=== PATIENT | male | born 1995 | race Caucasian/White ===

== ENCOUNTER 2020-05-09 22:15 | Emergency (ER) | payer OTHER ==
[~2020-05-09] VITALS: Ht 177.8 cm; Wt 95.2 kg
--- OUTSIDE RECORDS SUMMARY | ~2020-05-09 | XMS | Clinical Summary ---
Demographics + + + | Address | [address] | | | [place] [address] | + + + | Home Phone | | + + + | Preferred Language | Unknown | + + + | Marital Status | Single | + + + | Church Affiliation | Unknown | + + + | Race | White | + + + | Ethnic Group | Unknown | + + + Author + + + | Author | [facility] | | | and [place] | + + + | Organization | [facility] | | | and [place] | + + + | Address | Unknown | + + + | Phone | Unavailable | + + + Care Team Providers + +------+ + | Care Presser Automatic Name | Role | Phone | + +------+ + | Malachi Heredia MD | PCP | | + +------+ + Allergies Not on File Medications Not on file Active Problems Not on file Social History + +-------+ +--------+------+ | Tobacco Use | Types | Packs/Day | Years | Date | | | | | Used | | + +-------+ +--------+------+ | Never Assessed | | | | | + +-------+ +--------+------+ + + + | Sex Assigned at | Date Recorded | | | | + + + | Not on file | | + + + Last Filed Vital Signs Not on file Plan of Treatment + + +-------+ + | Health Maintenance | Due Date | Last | Comments | | | | Done | | + + +-------+ + | Vaccine: | | | | | Dtap/Tdap/Td (1 - | 7 | | | | Tdap) | | | | + + +-------+ + | Vaccine: Influenza | | | | | (#1) | 0 | | | + + +-------+ + Results Not on filefrom Last 3 Months"
--- OUTSIDE RECORDS SUMMARY | ~2020-05-09 | XMS | Encounter Summary ---
Demographics + + + | Address | [address] | | | [place] [address] | + + + | Home Phone | | + + + | Preferred Language | Unknown | + + + | Marital Status | Single | + + + | Mu-Ism Affiliation | Unknown | + + + | Race | White | + + + | Ethnic Group | Unknown | + + + Author + + + | Author | [facility] | | | and [place] | + + + | Organization | [facility] | | | and [place] | + + + | Address | Unknown | + + + | Phone | Unavailable | + + + Care Team Providers + +------+ + | Care Service Representative Name | Role | Phone | + +------+ + PCP | Unavailable | + +------+ + Encounter Details +--------+ + + + + | Date | Type | Department | Care Team | Description | +--------+ + + + + | 06/04/ | Emergency | [facility] | Carlos Mcdonald, | Pain in Limb | | 2007 | | [facility] | [address] | | | | | EM[facility]Y CENTER | [place] [address] | | | | | [address] | [phone] | | | | | [place], [place] | | | | | | [address] | | | | | | [phone] | | | +--------+ + + + + Social History + +-------+ +--------+------+ | Tobacco [...] on file | | + + + documented as of this encounter Plan of Treatment Not on filedocumented as of this encounter Visit Diagnoses + + | Diagnosis | + + | Pain in soft tissues of limb Pain in limb | + + documented in this encounter"
== END 2020-05-10 00:15 | disposition home or self-care (01) ==
LOC: ED 22:15
DX: S00.01XA Abrasion of scalp, initial encounter (principal); M54.2 Cervicalgia; F17.210 Nicotine dependence, cigarettes, uncomplicated; X58.XXXA Exposure to other specified factors, initial encounter
CPT/HCPCS: 70450; 72125; 99284-25

== ENCOUNTER 2023-05-13 20:17 | Emergency (ER) | payer BC ==
[~2023-05-13] VITALS: Ht 177.8 cm; Wt 89.8 kg
[2023-05-13 20:40] LABS: BILIRUBIN, URINE NEGATIVE (negative); BLOOD/HGB, URINE NEGATIVE (Negative); KETONE, URINE TRACE (Negative); LEUK ESTERASE, URINE NEGATIVE (negative); NITRITE, URINE NEGATIVE (negative)
[2023-05-13 20:44] LABS: BASOPHILS 0.2 % (0-2); EOSINOPHILS 1.3 % (0-6); HEMATOCRIT 49.4 % (35.0-50.0); HEMOGLOBIN 16.8 g/dL (12.0-18.0); LYMPHOCYTES 12.5 % (24-44); MCH 30.4 (27-36); MCHC 34.1 g/dl (30-36); MCV 89.1 fl (81-99); MONOCYTES 5.1 % (0-12); NEUTROPHILS 80.9 % (39-80); PLATELET COUNT 185 K/uL (140-440); RBC 5.54 M/ul (4.3-5.7); RDW 13.5 (10.5-15.0)
[2023-05-13 21:02] LABS: ALBUMIN 5.1 g/dL (3.4-5.0); ALBUMIN/GLOBULIN RATIO 1.34 (1.1-2.4); ANION GAP 11.5 (7-21); BILIRUBIN, TOTAL 1.6 ng/dL (0.2-1.0); BUN/CREATININE RATIO 8.27 (6.0-28.6); CALCIUM 9.4 mg/dL (8.5-10.1); CREATININE, SERUM 1.33 mg/dL (0.70-1.30); POTASSIUM 3.5 mmol/L (3.5-5.1); PROTEIN, TOTAL 8.9 g/dL (6.4-8.2)
[2023-05-13 21:33] LABS: INFLUENZA B NAA NEGATIVE (NEGATIVE); RESPIRATORY SYNCYTIAL VIR NAA NEGATIVE (NEGATIVE)
[2023-05-13] MEDS ORDERED: LOMOTIL TABLET1 EACH PO (22:22)
[2023-05-13] MEDS ORDERED: ONDANSETRON ODT4 MG PO (22:22)
[2023-05-13 22:35] VITALS: BP 134/77
== END 2023-05-13 22:46 | disposition home or self-care (01) ==
LOC: ED 20:17
PROVIDERS: Family Medicine
DX: K52.9 Noninfective gastroenteritis and colitis, unspecified (principal); F17.200 Nicotine dependence, unspecified, uncomplicated; Z20.822 Contact with and (suspected) exposure to COVID-19
CPT/HCPCS: 36415; 80053; 81003; 83690; 85025; 87502; 96360; 99284-25; A9270; C9803; J7030; U0002

== ENCOUNTER 2025-02-09 03:22 | Emergency (ER) | payer OTHER, BC ==
[~2025-02-09] VITALS: Ht 177.8 cm; Wt 87.5 kg
[~2025-02-09 03:22] MED LIST: LOMOTIL TABLET1 EACH PO; ONDANSETRON ODT4 MG PO
[2025-02-09 05:17] VITALS: BP 138/95
== END 2025-02-09 05:07 | disposition home or self-care (01) ==
LOC: ED 03:22
DX: S60.222A Contusion of left hand, initial encounter (principal); F17.200 Nicotine dependence, unspecified, uncomplicated; W22.8XXA Striking against or struck by other objects, initial encounter
CPT/HCPCS: 73130; 99283